=== PATIENT | male | born 1955 | race Caucasian/White ===

== ENCOUNTER → 2016-10-29 | Outpatient (CLI) | payer BC ==
[~2016-10-29] MED LIST: BUTA1CAP53 PO; CHLO-120 PO; CHRO400T10 PO; DIAZ2TAB3 PO; ESOM20CA PO; GADOBUTROL 10mMol/10ml INJECTION IV ONE; IBUP-14 PO; MULT-1175 PO; OMEG1CAP79 PO; ROSU20TA PO; SALINE FLUSH 10ml SYRINGE ONE; SUPER BETA PROSTATE PO; TAMS0.4C47 PO; THIO300C PO; TRAM50TA4 PO; UBID100C10 PO; ZINC50TA4 PO; [UNRECOGNIZED DRUG - CODE] PO; [UNRECOGNIZED DRUG - OTHER] NAS
--- NOTE | 2016-10-31 11:03 | DI ---
Indication: ITS.REASON: M54.5 LBP PROCEDURE: MRI LUMBAR SPINE W/WO CONTRAST: Encounter: Initial Comparison: MRI lumbar spine dated December 05, 2014 Technique: Multiplanar multisequence MR imaging of the lumbar spine was performed with and without contrast. Contrast: 10 mL Gadavist Findings: Alignment of the lumbar spine is stable. No acute fracture. Vertebral body heights are maintained. Conus medullaris terminates normally at L1. Paraspinal soft tissues show no acute findings. Segmental analysis: L1-L2: Normal L2-L3: Mild degenerative facet disease without focal disk herniation contributing to mild central canal narrowing. No significant neural foraminal stenosis. L3-L4: Prior left hemilaminectomy with degenerative facet disease. No focal disk herniation or central canal stenosis. Moderate left and mild to moderate right neural foraminal stenosis. L4-L5: Prior left laminectomy. No focal disk herniation or central canal stenosis. Severe bilateral neural foraminal stenosis with impingement on both exiting L4 nerve roots. This appears slightly worsened. L5-S1: No focal disk herniation or central canal stenosis. Moderate right and severe left neural foraminal stenosis. This appears worsened. No areas of concerning postcontrast enhancement. Impression: Worsening neural foraminal stenosis in the lower lumbar spine. .
== END ==
LOC: IMA 16:44
PROVIDERS: ATTEND Internal Medicine Hematology & Oncology
DX: M54.5 Low back pain (principal); M48.06 Spinal stenosis, lumbar region
CPT/HCPCS: 72158; A9585

== ENCOUNTER 2016-11-05 13:40 | Outpatient (CLI) | payer BC ==
[2016-11-05] VITALS (13 sets, daily range): BP systolic 124–150; BP diastolic 72–89; PULSE 55–93; RESP 14–22; TEMP 97.3–98.2; O2SAT 93–98; Ht 172.7 cm; Wt 112.6 kg
[~2016-11-05] VITALS: Ht 172.7 cm; Wt 112.6 kg
[~2016-11-05 13:40] MED LIST changes: -GADOBUTROL 10mMol/10ml INJECTION IV ONE; +IOHEXOL 180 MG/ML 20ml INJECTION ONE; +LIDOCAINE 1% (10mg/ml) 5ml VIAL ONE; +MethylPREDNISolone ACETATE 40mg/1ml ONE; -SALINE FLUSH 10ml SYRINGE ONE
--- NOTE | 2016-11-05 13:50 | NUR ---
Admit Pt admitted at this time.
[2016-11-05] MEDS ORDERED: LIDOCAINE 1% (10mg/ml) 5ml VIAL ONE (14:28)
[2016-11-05] MEDS ORDERED: MethylPREDNISolone ACETATE 40mg/1ml ONE ×2 (14:28→14:58)
[2016-11-05] MEDS ORDERED: IOHEXOL 180 MG/ML 20ml INJECTION ONE (14:29)
--- NOTE | 2016-11-05 15:03 | NUR ---
OFF UNIT Pt off unit to radiology at this time via wc.
--- NOTE | 2016-11-05 15:25 | NUR ---
BACK TO UNIT PATIENT IS BACK TO UNIT AT THIS TIME. PATIENT VITAL SIGNS ARE STABLE AND PATIENT IS ON ROOM AIR. PATIENT DENIES ANY CP, NAUSEA, AND SOA. AT BEDSIDE. WILL CONTINUE TO MONITOR.
--- NOTE | 2016-11-05 16:17 | NUR ---
CM THIS WORKER MET WITH PT ON THIS DATE. ALSO PRESENT WAS . THIS WORKER INTRODUCED SELF AND ROLE OF CASE MANAGEMENT. PT AND BOTH DENIED ANY NEEDS AT THIS TIME. PT WILL PLAN TO RETURN HOME AND WILL BE THERE IF HE WOULD NEED ANYTHING. THIS WORKER PROVIDED CONTACT INFORMATION FOR THIS WORKER AND ENCOURAGED THIS WORKER TO CONTACT WITH ANY NEEDS.
--- NOTE | 2016-11-05 16:24 | DI ---
Indication:ITS.REASON: M54.5 Procedure:EPIDURAL INJ.SPINE W FLUO CATH MONITORED IV SEDATION: The patient was given 2 mg Versed and 100 mcg fentanyl intravenously . This was administered by the sedation nurse. The sedation nurse did continuous monitoring during the procedure in radiology and also after the procedure in the patient's recovery room. Monitoring consisted of heart rate, pulse oximetry, and blood pressure. There is no complication. LUMBAR EPIDURAL INJECTION: The patient has low back and radicular pain. The patient states that he has had previous lumbar epidural injections at different facilities that resulted in moderate relief. The details of the procedure, including the benefits, risks, and alternatives were explained to the patient. All of their questions were answered. They stated that they understood and wished to proceed. Informed consent was then obtained. A pre-procedural timeout was performed to confirm the correct patient and procedure. Utilizing aseptic technique, local lidocaine anesthetic, and fluoroscopic guidance throughout, a 22-gauge spinal needle was directed into the lumbar epidural space via an interlaminar approach at the L5-S1 level. Contrast was injected to assure proper positioning of the needle tip. A fluoroscopic image was then taken and archived. Subsequently, 120 mg Depo-Medrol was injected into the epidural space. The patient tolerated the procedure well. Following the procedure, the patient was taken back to his recovery room for continued monitoring until discharged. IMPRESSION: Successful lumbar epidural steroid injection. Fluoroscopy dose: 10.38 mGy (Cumulative air kerma) Demetrius Magdaleno RPA/ANNE performed this under my personal supervision. .
--- NOTE | 2016-11-05 16:32 | NUR ---
ADVANCE DIRECTIVES REVIEWED ADVANCE DIRECTIVE INFORMATION WITH PT AND . INFORMATION GIVEN. ENCOURAGED TO CONTACT WITH ANY QUESTIONS. Addendum: 11/05/16 at 1633 by OKSANA BARAHONA Amended: Links added.
[2016-11-05] MEDS ORDERED: FENTANYL 100mcg/2ml INJECTION IV ONE (16:51)
[2016-11-05] MEDS ORDERED: MIDAZOLAM 2mg/2ml INJECTION IV ONE (16:52)
[2016-11-05] MEDS ORDERED: SALINE FLUSH 10ml SYRINGE IVF ONE (16:52)
--- NOTE | 2016-11-05 17:10 | NUR ---
DISCHARGE PATIENT IS ALERT AND ORIENTED X3. PATIENT VITALS ARE STABLE AND PATIENT IS ON ROOM AIR. PATIENT DENIES CP, NAUSEA, AND SOA. PATIENT DISCHARGE INSTRUCTIONS INCLUDED: CONTINUED MEDICATIONS, AND DC FOR LOW BACK PAIN. PATIENT IV DISCONTINUED. PERSONAL BELONGINGS RETURNED. PATIENT AMBULATED THROUGH ED ENTRANCE. PATIENT WAS TRANSPORTED HOME FOR SELF CARE BY .
[2016-11-05] MEDS ORDERED: [UNRECOGNIZED DRUG - OTHER] NAS SCH (21:00)
== END 2016-11-05 17:10 | disposition home or self-care (01) ==
LOC: IMA.BED 13:40 → SRG 13:42 → IMA.BED 17:10
PROVIDERS: ATTEND Internal Medicine Hematology & Oncology
DX: M54.5 Low back pain (principal)
CPT/HCPCS: 62323; J1030; J2250; J3010; Q9965